=== PATIENT | male | born 1970 | race Caucasian/White ===

== ENCOUNTER 2017-09-14 05:55 | Day surgery (SDC) | payer BC ==
[~2017-09-14] VITALS: Ht 172.7 cm; Wt 90.6 kg
[~2017-09-14 05:55] MED LIST: ATOR40TA16 PO; METO25TA3 PO; OMEP40CA2 PO; ZOLP10TA3 PO
[2017-09-14] MEDS ORDERED: IOHEXOL 350 MG/ML 100 ML BTL (for Cath Lab) OTHER ONE (05:56)
[2017-09-14] MEDS: SODIUM CHLOR 0.9% 1000 ML INJ 1,000 ML IV SCH ×2 (06:07→06:49)
[2017-09-14] MEDS ORDERED: MIDAZOLAM HCL 2 MG/2 ML VIAL IV PUSH SCH (06:15)
[2017-09-14] MEDS ORDERED: ASPIRIN 325 MG TAB PO SCH (06:15)
[2017-09-14 06:50] VITALS: BP 122/84; PULSE 75; RESP 18; TEMP 98.5; O2SAT 94
[2017-09-14] MEDS ORDERED: ASPI81CH6 CHEW (06:57)
[2017-09-14] MEDS ORDERED: ALPR0.5T3 PO (06:58)
[2017-09-14] MEDS ORDERED: MULTTAB67 PO (06:58)
[2017-09-14] MEDS ORDERED: NITR1SUB3 SL (06:58)
[2017-09-14] MEDS ORDERED: HEPARIN-NS/PF INJ 500 ML ONE ×2 (07:13)
[2017-09-14] MEDS ORDERED: MIDAZOLAM HCL 2 MG/2 ML VIAL ONE (07:13)
[2017-09-14] MEDS ORDERED: NITROGLYCERIN INJ 5 ML ONE (08:07)
[2017-09-14] MEDS ORDERED: NITROGLYCERIN 0.4 MG SL 25 TABS/BTL SL ONE (08:07)
--- NOTE | 2017-09-14 08:33 | CATHPROC ---
[employer] HIS Report Study Information Study Number Admission Scheduled Start Study Start [id number] Sep 14 2017 5:55AM 09/14/2017 Sep 14 2017 6:56AM [place] Service Cardiac Catheterization Admit Source Facility Department Other [facility] - Construction Laborer Physician and Clinical Staff Initial MD Gibson, Dao Paper Baler Deepali Varma,ADORE Other Misha RN, Richa Lobo,RT(R) Scrub Trish Jordan,RT(R) Procedures Performed Procedure Location (Site) Vessel Name Angiogram LV LV Ventricle Coronary Angiograms LCA Left Coronary L Heart Cath Equipment Time Exploration Driller Description Size Mfg Part Number Used/Scraped TRANSDUCER, TRUWAVE [id number] 07:10 TEJEDA ZEPEDA * Used W/STOCKCOCK *[id number] 08:13 [employer] VASCADE, FR6 CLOSURE SYSTEM FR 6\7 Used *[id number] *[id number] [id number] *[id number] [id number] *[id number] [id number] *[id number] 07:10 [employer] INDUSTRIES PACK, CCL CUSTOM * Used *[id number] 07:10 [employer] PACER PEN, SKIN DUAL W/ RULER * Used *[id number] 07:10 [employer] SHEATH, FR6.5 PRELUDE 11CM FR 6.5 038ACT Used *[id number] 07:10 [employer] WIRE, 3MMJ .035 180CM 180CM Used *[id number] 07:10 [employer] MANIFOLD, 4 PORT * Used *[id number] 07:10 [employer] OMNIPAQUE, 350 MG, 150ML 150ML [id number] Used 07:13 [employer] OMNIPAQUE, 350 MG, 50ML 50ML [id number] Used [id number] 07:10 [facility],WARM AIR CCL * Used *[id number] History: Current Medications Medication Dosage/Unit Route Frequency Last Date/Time Taken ASA LOPRESSOR Statins (any) History: Allergies Allergy Reaction No Known Allergies History: Risk Factors Family History of Hypertension Dyslipidemia Previous OR Previous Heart Failure Premature CAD No Yes No No No Prior Valve Prior PCI Prior CABG Surgery No No No Cerebrovascular Peripheral Artery Chronic Lung On Dialysis Diabetes Disease Disease Disease No No No No No History: Symptoms/Diagnosis Selection Items Chest pain History: Stress Tests Stress or Imaging Studies Performed Yes Standard Exercise Stress Stress Test Result Stress Test Ischemia Risk/Extent Test Yes Positive Intermediate Stress Echo No Stress Test SPECT No Stress Test CMR No Cardiac CTA Coronary Calcium Score No No History: Other Current Smoker Method Packs a Day Years Used Pack Years Yes Cigarettes 1 25 25 Labs Hgb (g/dl) Hct (%) WBC (l/cumm) Platelets (thousands) 11.60-17.00 35.00-51.00 4.00-11.00 150.00-450.00 13.6 42.8 8.6 287 BUN (mg/dl) Creatinine (mg/dl) BUN:Creatinine (1:x) 7.00-18.00 0.50-1.30 10.00-20.00 13 1.2 10.8 Na (meq/l) K (meq/l) 136.00-145.00 3.50-5.10 142 4.4 Medication Medication Total Dose (Bolus/Oral) Medication Total Dosage/Unit 1% XYLOCAINE 20 mL FENTANYL 25 mcg NITROGLYCERIN S/L 0.4 mg NTG (IC) 100 mcg VERSED 2 mg Medications (Bolus/Oral) Medication Time Given Dosage/Unit Administered By Reason VERSED 09/14/2017 7:38:02 AM 2 mg Deepali Varma 2 mg VERSED given in lab by Deepali Varma, RN in Left Antecubital via Peripheral IV. Ordered by Dao Osborne. 1% XYLOCAINE 09/14/2017 7:39:46 AM 20 mL Dao Gibson 20 mL 1% XYLOCAINE given in lab by Dao Gibson in Right Groin via Subcutaneous. FENTANYL 09/14/2017 7:40:43 AM 25 mcg Deepali Varma 25 mcg FENTANYL given in lab by Deepali Varma, RN in Left Antecubital via Peripheral IV. Ordered by Dao Gibson. NTG (IC) 09/14/2017 8:08:09 AM 100 mcg Trish Jordan 100 mcg NTG (IC) given in lab by Trish Jordan, RT(R) in Right Groin via Intra-coronary. Ordered by Dao Gibson. NITROGLYCERIN S/L 09/14/2017 8:08:50 AM 0.4 mg Deepali Varma 0.4 mg NITROGLYCERIN S/L given in lab by Deepali Varma RN via Sublingual. Ordered by Tristan Gibson. Medication (Drip) Medication Time Given Dosage/Unit Concentration/Unit Diluent (ml) Solution IV Bolus 09/14/2017 8:08:16 AM 500 mL (Bolus) D5W .45 NaCl 500 mL (Bolus) IV Bolus given in lab by Deepali Varma RN in Left Antecubital via Peripheral IV. Us ing D5W .45 NaCl. Ordered by Mark. Arthur IV Solutions 09/14/2017 6:56:16 AM 50 mL (IV) NaCl .9 IV Solutions given in lab by Deepali Varma RN in Left Antecubital via Peripheral IV. Pump/Drip Rangel w using NaCl .9. Initial Case Assessment Cardiovascular HR Rhythm NIBP Chest Pain 66 SR 128/78 0 Edema Present Skin color Skin None Normal Warm Dry Circulatory - Right Pulses Dorsalis Pedis Femoral 3 3 Scale (0,1,2,3,4,d) Circulatory - Left Pulses Dorsalis Pedis Femoral 3 3 Scale (0,1,2,3,4,d) Neurological State Oriented to time-place- Alert Moves all extremities person Respiration - General Respiration Rate SpO2 (%) (B/min) 19 94 Chronological Log Time Study Chronological Log 6:55:04 Patient arrived via Bed. 6:55:59 Patient Name, D.O.B, / Armband Verified By R.N. 6:56:00 Consent signed by the physician and the patient and verified by the Construction Laborer staff. 6:56:00 Pre-op and post- op instructions given; patient acknowledges understanding of instructions. 6:56:02 Verbal Stimulation=2 Physical Stimulation=2 Airway=2 Respiration=2 TOTAL=8. (0=absent, 1=key ited, 2=present) 6:56:04 Presedation assessment performed by Construction Laborer RN. 6:56:06 Patient has been NPO for More than 6Hrs. 6:56:07 Skin Breakdown- none per pt 6:56:07 Patient Warmer Placed on the Table. 6:56:09 Nick Prominences Protected 6:56:13 A # 20 IV was noted in the Antecubital (left). Grade = 0 6:56:16 IV Solutions given in lab by Deepali Varma RN in Left Antecubital via Peripheral IV. Pump /Drip Flow using NaCl .9. Assessment: Initial Case, HR=66 BPM, Rhythm=SR, FGIY=927/78 mmhg, Chest Pain=0, Edema=None, [place] r=Normal, Skin = Warm, Dry Right Pulses: Pedro Ped=3, Femoral=3 6:56:22 Left Pulses: Pedro Ped=3, Femoral=3 Neurological: State=Alert, Ox3, SHETH Respiration: Resp=19 B/min, SpO2=94 % Vitals capture started with the following parameters, Patient=Adult, Interval=5 min, Initial Pre usxqd=105 mmHg, 7:07:21 Deflation Rate=5 mmHg, Cuff placed on Left Arm 7:07:23 Reference ECG taken 7:07:59 HR=66 bpm, INEM=242/78 mmhg, SpO2=94.0 %, Resp=19 B/min 7:08:55 Bilateral groins prepped with 2% chlorhexidine, and draped after a 3 minute waiting time. 7:13:02 HR=63 bpm, MJFH=899/78 mmhg, SpO2=95.0 %, Resp=18 B/min 7:14:59 Pressure channel 1 zeroed. 7:18:03 HR=76 bpm, VISA=278/76 mmhg, SpO2=96 %, Resp=17 B/min 7:23:00 HR=62 bpm, IYJG=166/82 mmhg, SpO2=94.0 %, Resp=16 B/min 7:28:03 HR=59 bpm, AQAL=313/76 mmhg, SpO2=94.0 %, Resp=13 B/min 7:30:09 MD arrived. 7:33:02 HR=56 bpm, MAIW=227/70 mmhg, SpO2=95.0 %, Resp=16 B/min Time Out. Correct patient, correct procedure, correct physician, power injector loaded, or not l oaded with contrast with 7:37:04 surgical team present. Time Out Concurred by MD and individual staff in procedure. 7:37:50 Case Start 7:38:01 HR=69 bpm, KUTT=597/82 mmhg, SpO2=97.0 %, Resp=16 B/min 7:38:02 2 mg VERSED given in lab by Deepali Varma, RN in Left Antecubital via Peripheral IV. Order ed by Dao Gibson. 7:39:46 20 mL 1% XYLOCAINE given in lab by Dao Gibson in Right Groin via Subcutaneous. 7:40:43 25 mcg FENTANYL given in lab by Deepali Varma RN in Left Antecubital via Peripheral IV. O rdered by Dao Gibson. 7:43:02 HR=80 bpm, YORN=227/82 mmhg, SpO2=93.0 %, Resp=19 B/min 7:45:27 Access site was Right Femoral Artery. 7:45:35 A SHEATH, FR6.5 PRELUDE 11CM FR 6.5 was advanced into the Fem Art (right) using the Percutan eous technique. A PIGTAIL STR INFINITI CATHETER FR 6 was advanced over a wire. OMNIPAQUE, 350 MG, 150ML 150ML wa s used for 7:47:04 injections. 7:47:59 HR=72 bpm, JXCQ=143/89 mmhg, SpO2=96.0 %, Resp=14 B/min Recorded Pressure: LV, HR=80, Condition=Condition 1 7:48:11 (Left Ventricle) LV 112/5/7 7:48:57 The LV was injected at 12 cc/sec for a total of 32. OMNIPAQUE, 350 MG, 50ML 50ML used. Recorded Pressure: LV, Ao, HR=69, Condition=Condition 1 7:49:44 (Left Ventricle) LV 98/4/10, (Aorta) Ao 98/62/79 7:49:52 Catheter was removed A JL 4.0 INFINITI CATHETER FR 6 was advanced over a wire. OMNIPAQUE, 350 MG, 150ML 150ML was use d for 7:50:02 injections. 7:51:11 The LCA was injected and visualized at various angles. OMNIPAQUE, 350 MG, 150ML 150ML used. Recorded Pressure: Ao, HR=77, Condition=Condition 1 7:52:44 (Aorta) Ao 114/76/92 7:53:00 HR=72 bpm, YMWC=964/77 mmhg, SpO2=93.0 %, Resp=20 B/min 7:54:49 Catheter was removed A 3DRC INFINITI CATHETER FR 6 was advanced over a wire. OMNIPAQUE, 350 MG, 150ML 150ML was used for 7:55:02 injections. 7:57:59 HR=79 bpm, SEXG=452/80 mmhg, SpO2=94.0 %, Resp=18 B/min 8:00:30 Catheter was removed A JR 4.0 INFINITI CATHETER FR 6 was advanced over a wire. OMNIPAQUE, 350 MG, 150ML 150ML was use d for 8:00:54 injections. 8:03:02 HR=76 bpm, WOKP=756/80 mmhg, SpO2=93.0 %, Resp=16 B/min 8:08:05 HR=72 bpm, BMKQ=240/72 mmhg, SpO2=93.0 %, Resp=17 B/min 8:08:09 100 mcg NTG (IC) given in lab by Trish Jordan RT(R) in Right Groin via Intra-coronary. Or dered by Dao Gibson. 500 mL (Bolus) IV Bolus given in lab by Deepali Varma, ADORE in Left Antecubital via Peripheral I V. Using D5W .45 NaCl. 8:08:16 Ordered by Dao Gibson. 8:08:50 0.4 mg NITROGLYCERIN S/L given in lab by Deepali Varma, ADORE via Sublingual. Ordered by Dao Cunningham. 8:09:46 Catheter was removed 8:11:07 An injection in the Fem Art (right) was made through the SHEATH, FR6.5 PRELUDE 11CM FR 6.5. 8:13:05 HR=77 bpm, DPWY=378/72 mmhg, SpO2=91.0 %, Resp=13 B/min 8:13:58 VASCADE, FR6 CLOSURE SYSTEM FR 6\7 placement in the Fem Art (right) 8:15:25 Case End 8:15:27 Sterile dressing applied to site 8:15:27 No case complications noted. 8:15:39 Cine recording checked. 8:15:40 Bedside Report will be given. 8:15:49 A Left Heart Cath was performed. 8:18:04 HR=77 bpm, PJPS=465/79 mmhg, SpO2=95.0 %, Resp=11 B/min 8:23:07 HR=83 bpm, VIZB=226/71 mmhg, SpO2=94.0 %, Resp=7 B/min 8:25:52 [facility] Vitals capture stopped. End Study - Contrast Media Used In Study Contrast Total Opened (mL) Total Used (mL) Total Wasted (mL) Omnipaque 80 80 0 End Study - Maximum Contrast Load Max Contrast Load (mL) 376.9 End Study - Radiation Exposure Fluoro Time (minutes) 9.3 End Study - Patient Disposition Complications Transferred To Interventional Outcome No Outpatient Bed No attempt made
--- NOTE | 2017-09-14 16:27 | MA ---
cc: ARMAAN SHELDON M.D. DATE: September 14, 2017 PROCEDURE PERFORMED 1. Left heart catheterization. 2. Coronary arteriography. 3. Left ventriculography. 4. Right femoral angiography. 5. Vascade arteriotomy closure right femoral artery. PROCEDURE TECHNIQUE The patient was brought to the cardiac catheterization laboratory following informed consent. The area of the right groin was prepped and draped in the usual sterile manner. Following 10 mL of 1% Xylocaine for local anesthesia, a 6-Eritrean short introducer sheath was placed in the right femoral artery via modified Seldinger technique. Through this introducer sheath a 6-Eritrean diagnostic catheter system including a JL-4, JR-4, 3DRC, and straight pigtail were used for the left heart study. Multiple projections of the left and right coronaries were taken and a left ventriculogram was done in the CRAIG 3o-degree projection only. The right femoral angiogram was done in the CRAIG 30-degree projection only. The patient did receive one dose of 100 mcg intracoronary nitroglycerin because of right coronary catheter spasm as well as one sublingual nitroglycerin with significant relief in the spasm noted. At the completion of the diagnostic procedure, the catheters and introducer were removed. Adequate hemostasis was obtained with the use of a Vascade device in the right femoral artery without difficulty or complication. It is noted that the right femoral angiogram did show a moderately high stick but appeared to be clear of the inferior epigastric artery and Vascade closure was still felt to be appropriate. HEMODYNAMIC DATA No gradient was recorded across the aortic valve. Left ventricular end-diastolic pressure is 10 mmHg. For complete hemodynamic details, please see accompanying paperwork. ANGIOGRAPHIC FINDINGS LEFT VENTRICLE The left ventricle demonstrates normal end-systolic and diastolic dimensions. Overall left ventricular contractility is normal. Estimated left ventricular ejection fraction is 65-70%. No mitral regurgitation is seen. The aortic valve is trileaflet, opens normally. The aortic root is normal. LEFT CORONARY ARTERY The left coronary artery arises normally from the left coronary sinus. The left main trunk is a medium-sized vessel and normal. LEFT ANTERIOR DESCENDING The left anterior ascending artery gives rise to one diagonal branch and courses to the apex. The LAD is moderate in size is normal throughout as it tapers at the apex. The diagonal branch is moderate in size and normal. CIRCUMFLEX Dominant. The main circumflex is moderate to large in caliber and normal. The main circumflex gives rise to a lateral branch, a posterolateral branch and a posterior descending branch. The circumflex and its branches are normal. The posterior descending branch is large in caliber. RIGHT CORONARY ARTERY Nondominant. Normal. RIGHT FEMORAL ANGIOGRAPHY The internal-external iliacs are widely patent. There is a 40% stenosis noted in the common femoral artery just beyond the internal iliac. There is also moderate irregularities and possibly consistent with fibromuscular dysplasia noted throughout the proximal to mid-segment of the common femoral artery. The distal segment is large in caliber and normal and the bifurcation into the profunda and SFA are widely patent and normal. DIAGNOSES 1. Normal coronary arteries. 2. Normal left ventricular function. 3. 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 COMMENT/RECOMMENDATIONS Angiographically, this patient does not demonstrate any hemodynamically significant coronary artery disease to explain his stress test abnormalities. I have discontinued his metoprolol today since that was making him feel fatigued and his blood pressure is low. We will continue medical management and observation, symptom limited the exercise program and continuing to abstain from tobacco use. He will have his risks factors modified and will remain on statin therapy. I will see him back in the office in 2 weeks. He will be discharged to home later today when ambulatory and stable. MD SHAWN Tompkins/ERICH /8:21 AM /3:57 PM
== END 2017-09-14 11:37 | disposition home or self-care (01) ==
LOC: HCAT 05:55 → HDIC 05:55 → HCAT 11:37
PROVIDERS: ATTEND Internal Medicine Interventional Cardiology
DX: R07.89 Other chest pain (principal); R06.00 Dyspnea, unspecified; R94.39 Abnormal result of other cardiovascular function study; D50.9 Iron deficiency anemia, unspecified; E78.00 Pure hypercholesterolemia, unspecified; E66.3 Overweight; Z68.30 Body mass index [BMI] 30.0-30.9, adult; Z87.891 Personal history of nicotine dependence
CPT/HCPCS: 93458; 99152; 99153; C1760; C1769; C1893; G0269; J1644; J2250; J3010; J7030; Q9967